=== PATIENT | female | born 1960 | race Caucasian/White ===

== ENCOUNTER 2017-06-29 13:02 | Day surgery (SDC) | payer OTHER ==
[~2017-06-29] VITALS: Ht 162.6 cm; Wt 72.6 kg
--- NOTE | 2017-06-29 14:16 | NUR ---
06/29/17 1416 OnofreFernando thakur PT PASSING LARGE AMOUNTS OF AIR FROM HER COLON.
--- NOTE | 2017-07-28 07:48 | OR ---
[facility] [address], [place] [address] Signed DATE OF PROCEDURE: 06/29/17 PREOPERATIVE DIAGNOSIS: Colon screening. POSTOPERATIVE DIAGNOSIS: Advanced diverticular changes in sigmoid colon. PROCEDURE: Total colonoscopy to cecum. SURGEON: Nata Baum MD. ANESTHESIA: Intravenous sedation with Fentanyl 100 mcg, Versed 5 mg. INDICATION This 57-year-old white woman is a patient of Dr. Rico Carrillo. She is referred for screening colonoscopy. She has no family history of colon cancer, but does have history of polyp of the colon in 2009. This was performed by Dr. Abram Abad. She is here upon referral of her sister and [id number], Jose and Meka Hull. She is symptom-free overall. She understands the risks of bleeding, infection, and perforation related to colonoscopy and wished to proceed. FINDINGS The prep was good. Complete colonoscopy was undertaken to the cecum. She had considerable number of diverticula of the sigmoid colon, which made passage of the scope challenging and prolonged, but it was accomplished safely. The scope was advanced to the cecum without question. The ileocecal valve and appendiceal orifice were normal. There is no evidence of polyps or cancer, only the diverticulosis as well as internal hemorrhoids. DESCRIPTION OF PROCEDURE The patient was brought to the endoscopy suite and placed in lateral decubitus position, give n intravenous sedation to the point of slurred speech and nystagmus. Digital rectal examination was normal. Full cardiopulmonary monitoring was maintained. After normal digital rectal examination, an Olympus video colonoscope was passed in the rectum and manipulated throughout the colon. Numerous diverticula were seen in the sigmoid and left colon. Passage to the sigmoid was with extreme caution as there was a fair amount of angulation deformity, and so on. Ultimately, the scope was passed beyond the sigmoid to the left colon and relatively easily to the cecum from there. Ileocecal valve and appendiceal orifice were normal. Scope was withdrawn from that point and examination throughout showed no sign of abnormality, specifically no polyps or cancer. Diverticula were once again encountered in the mid descending colon. Further withdrawal of scope through the sigmoid showed no evidence of polyps. Retroflexed view in the rectum confirmed internal hemorrhoids. They were not thrombosed or bleeding. The scope was Electronically Signed By: NATA BAUM MD 07/28/17 0748 PATIENT NAME: KAI HIGHTOWER V OPERATIVE REPORT DATE OF : 56 PHYSICIAN: NATA BAUM MD REPORT #: [id number] REPORT IS CONFIDENTIAL AND NOT TO BE RELEASED WITHOUT AUTHORIZATION [address] [address] Signed removed and the patient was taken to recovery room in good condition. CONCLUDING DIAGNOSES Extensive diverticulosis of sigmoid and left colon. Internal hemorrhoids. MD RADHA Ortiz/Kaleb /[id number] cc: Rico Carrillo DO Electronically Signed By: NATA BAUM MD 07/28/17 0748 PATIENT NAME: KAI HIGHTOWER V OPERATIVE REPORT DATE OF : 56 PHYSICIAN: NATA BAUM MD REPORT #: [id number] REPORT IS CONFIDENTIAL AND NOT TO BE RELEASED WITHOUT AUTHORIZATION
== END 2017-06-29 14:55 | disposition home or self-care (01) ==
LOC: OPS 13:02 → DS 13:02 → OPS 14:00
PROVIDERS: Surgery
PROC: 0DJD8ZZ Inspection of Lower Intestinal Tract, Via Natural or Artificial Opening Endoscopic (ICD-10-PCS; principal; 2017-06-29 14:00)
DX: Z12.11 Encounter for screening for malignant neoplasm of colon (principal); K57.30 Diverticulosis of large intestine without perforation or abscess without bleeding; K64.8 Other hemorrhoids; F17.210 Nicotine dependence, cigarettes, uncomplicated; G47.30 Sleep apnea, unspecified; Z90.710 Acquired absence of both cervix and uterus; Z90.89 Acquired absence of other organs; Z98.890 Other specified postprocedural states; Z99.89 Dependence on other enabling machines and devices; Z86.010 Personal history of colon polyps
CPT/HCPCS: 99152; 99153; J2250; J3010; J7120

== ENCOUNTER 2025-01-24 09:23 | Emergency (ER) | payer MEDICARE ==
[~2025-01-24] VITALS: Ht 162.6 cm; Wt 80.0 kg
[2025-01-24] MEDS ORDERED: AMLODIPINE BESYL5 MG PO (09:48)
[2025-01-24] MEDS ORDERED: ROSUVASTATIN CA20 MG (09:48)
[2025-01-24] MEDS ORDERED: OMEPRAZOLE20 MG PO (09:48)
[2025-01-24] MEDS ORDERED: AMOX TR-K CLV1 EAC1 PO (09:48)
[2025-01-24] MEDS ORDERED: LOSARTAN POTAS100 MG PO (09:48)
[2025-01-24 12:55] VITALS: BP 112/96
== END 2025-01-24 12:55 | disposition home or self-care (01) ==
LOC: ED 09:23
DX: J06.9 Acute upper respiratory infection, unspecified (principal); B09 Unspecified viral infection characterized by skin and mucous membrane lesions; I10 Essential (primary) hypertension; F17.200 Nicotine dependence, unspecified, uncomplicated; Z79.899 Other long term (current) drug therapy
CPT/HCPCS: 71045; 99283-25